=== PATIENT | male | born 2005 | race Hispanic/Latino ===

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

== ENCOUNTER 2023-09-05 15:17 | Emergency (ER) | payer OTHER, SELFPAY ==
--- NOTE | 2023-09-05 15:29 | ED.GENADULT ---
HPI - General Adult General Chief complaint: Wound/Laceration Stated complaint: lt thumb laceration Time Seen by Provider: 09/05/23 15:29 Source: patient Mode of arrival: ambulatory Limitations: no limitations History of Present Illness HPI narrative: 18-year-old male patient presents to [facility] with complaints of a laceration of the left thumb. Patient states he was grinding some metal and cut his left thumb on a scissors grinder. Patient aware of when his last tetanus shot was. Related Data Allergies Allergy/AdvReac Type Severity Reaction Status Date / Time No Known Allergies Allergy Mild Verified 09/05/23 15:54 Review of Systems Review of Systems: CONSTITUTIONAL: Denies fever, chills, or sweats. EYES: Denies visual changes, redness, or discharge. ENT: Denies rhinorrhea, congestion, sore throat, or otalgia. CARDIOVASCULAR: Denies chest pain, palpitations, or edema. RESPIRATORY: Denies cough or dyspnea. GASTROINTESTINAL: Denies abdominal pain, nausea, vomiting, or diarrhea. GENITOURINARY: Denies dysuria or hematuria. SKIN: Denies rash or itching. Positive laceration to left thumb MUSCULOSKELETAL: Denies back pain, joint pain, or myalgia. NEUROLOGIC: Denies headache, numbness, or weakness. PSYCHIATRIC: Denies anxiety or depression. [facility] Past Medical History Medical History Bronchitis Comments At the time of my signature I agree with nursing past medical history, surgical, social, and family history. There is no relevant family history pertinent to the presenting complaint. Exam Narrative: GENERAL: Well-appearing, well-nourished, and in no acute distress. HEAD: Normocephalic, atraumatic. EYES: PERRLA and EOMI. ENT: Nares clear, no rhinorrhea or epistaxis. Mucous membranes moist. NECK: Supple. No lymphadenopathy CHEST: Clear to auscultation. No respiratory distress. HEART: Regular rate and rhythm. No murmur heard. Normal peripheral pulses. ABDOMEN: Soft, nontender, nondistended, normal active bowel sounds. EXTREMITIES: Normal range of motion. No edema. SKIN: Warm, dry, no rash. patient has approximately 1 cm linear laceration to the left thumb proximal to the DIP joint. NEURO: No focal deficits. Alert and oriented x3. Course Course Level of Care: Express Care Visit Vital Signs Vital signs: Vital Signs Temperature 36.8 C 09/05/23 15:39 Pulse Rate 77 09/05/23 15:39 Respiratory Rate 18 09/05/23 15:39 Blood Pressure 116/58 L 09/05/23 15:39 Pulse Oximetry 99 09/05/23 15:39 Oxygen Delivery Room Air 09/05/23 15:39 Temperature 36.8 C 09/05/23 15:39 Pulse Rate 77 09/05/23 15:39 Respiratory Rate 18 09/05/23 15:39 Blood Pressure 116/58 L 09/05/23 15:39 Pulse Oximetry 99 09/05/23 15:39 Oxygen Delivery Room Air 09/05/23 15:39 Vital signs reviewed. Procedures Laceration Laceration 1: Date: 09/05/23 Time: 16:54 Site: hand ( left thumb) Side (If applicable): left Size (cm): 1 Description: linear Depth: simple, single layer Local Anesthetic: lidocaine 1% Amount of anesthesia used (mL): 8 Pre-repair: wound explored, irrigated and irrigated extensively ====== Skin Level ====== Skin layer closed with: vicryl Size (cm): 5-0 Number of sutures: 3 Technique: simple, interrupted ====== Subcutaneous Layer ====== ====== Muscle Layer ====== ====== Tendon Layer ====== Dressing: The Procedure was explained and verbal consent was obtained. The wound was anesthetized with 8 ml of 1% lidocaine with epi with good anesthesia with local infiltration. Sterile drape and prep were done. Copious irrigation was done with saline and Shur-Clens and the wound was explored. There was no foreign body or deep structure injury noted. Patient had good range of motion under anesthesia. Wound edges were approximated with go
[2023-09-05 15:39] VITALS: BP 116/58; PULSE 77; RESP 18; TEMP 36.8; O2SAT 99
[2023-09-05] MEDS: TETANUS,DIPHTHERIA,AC PERTUSSIS ADULT (0.5 ML) BOOSTRIX IM (16:22)
== END 2023-09-05 17:04 | disposition home or self-care (01) ==
PROVIDERS: Emergency Provider Nurse Practitioner Family
DX: S61.012A Laceration without foreign body of left thumb without damage to nail, initial encounter (principal); W29.8XXA Contact with other powered hand tools and household machinery, initial encounter; Z23 Encounter for immunization
CPT/HCPCS: 12001; 90471; 90715; 99213; G0463